=== PATIENT | female | born 1960 | race Caucasian/White ===

== ENCOUNTER 2016-12-25 21:46 | Emergency (ER) | payer MEDICARE, MEDICAID ==
--- NOTE | 2017-01-04 13:53 | ER ---
ADMIT: 12/25/2016 RM/LOC: [facility] MR#: [id number] [address] [address] [place] [address] Emergency Room Report SEX: F AGE: 56 : 1960 DATE: 12/25/2016 ADDENDUM: A 56-year-old female, who lives at a skilled nursing as she needs assistance due to her traumatic brain injury many years ago, comes in for an injury to her right small finger. Apparently, she was trying to transfer from her wheelchair to a commode when she lost her balance, fell, and somehow crushed her distal phalanx of her right small finger. On evaluation, she has had a complicated injury involving her nail bed and has essentially lost her nail already on her right small finger. There is no injury proximal to the distal phalanx. An x-ray does confirm a tuft fracture to the distal phalanx. The wound was thoroughly cleaned with Betadine and irrigated. I removed the nail, which was barely attached and did my best to reapproximate what was left of the nail bed. Seven sutures were used to approximate the wound and she had bupivacaine for anesthesia. As it is a technically open fracture, she got Rocephin here. She will be discharged home on Keflex, and she is to follow up in Dr. Garcia' office later this week. She is given a nonadherent dressing with a finger basket splint for protection. DIAGNOSES: 1. Crush injury to the right distal phalanx 5th digit. 2. Laceration of the nail bed of right distal phalanx 5th digit. Hadley Noel MD/ [place] JOB #: [id number] CC: Hadley Noel MD, Attending Physician UNKNOWN, Family Physician
== END 2016-12-25 23:45 | disposition home or self-care (01) ==
LOC: ER 21:46
PROC: 0HQQXZZ Repair Finger Nail, External Approach (ICD-10-PCS; principal; 2016-12-25)
DX: S62.636B Displaced fracture of distal phalanx of right little finger, initial encounter for open fracture (principal); S61.316A Laceration without foreign body of right little finger with damage to nail, initial encounter; Z88.0 Allergy status to penicillin; Z88.6 Allergy status to analgesic agent; Z79.899 Other long term (current) drug therapy; W20.8XXA Other cause of strike by thrown, projected or falling object, initial encounter; Y92.009 Unspecified place in unspecified non-institutional (private) residence as the place of occurrence of the external cause

== ENCOUNTER → 2016-12-31 | Outpatient (CLI) | payer MEDICARE, MEDICAID | END | disposition home or self-care (01) | LOC: RAD.S 08:30 | PROC: BP09YZZ Plain Radiography of Left Shoulder using Other Contrast (ICD-10-PCS; principal; 2016-12-31) | DX: M25.512 Pain in left shoulder (principal) ==

== ENCOUNTER → 2017-01-27 | Outpatient (CLI) | payer MEDICARE, MEDICAID | END | disposition home or self-care (01) | LOC: RAD.S 10:45 | DX: Z01.818 Encounter for other preprocedural examination (principal) ==

== ENCOUNTER 2017-01-31 10:10 | Day surgery (SDC) | payer MEDICARE, MEDICAID ==
[~2017-01-31] VITALS: Ht 175.3 cm; Wt 108.2 kg
--- NOTE | 2017-01-31 14:36 | HP ---
ADMIT: 01/31/2017 RM/LOC: [facility] MR#: [id number] [address] [address] Pre-OP History and Physical SEX: F AGE: 56 : 1960 DATE OF SERVICE: 01/31/2017 CHIEF COMPLAINT: Left shoulder pain. HISTORY: This 56-year-old lady has undergone rotator cuff surgery in the past. She has had ongoing pain for quite some time, which we treated conservatively. Her prior rotator cuff repair was in 2007. She does have a known history of cervical radiculopathy. Recent scan demonstrated recurrent tear of the rotator cuff. PAST MEDICAL HISTORY: Medical problems including anxiety, endometrial cancer, depression, GERD, rheumatoid arthritis, headaches with migraines, and hearing impairment. PRIOR SURGERIES: Include arthroscopy of the ankle, arthroscopic repair of rotator cuff in 2001, and a hysterectomy. MEDICATIONS: 1. VESIcare. 2. Antivert. 3. Gabapentin. 4. Lasix. 5. Terazosin. 6. Lomotil. 7. Nabumetone. 8. Nystatin ointment. 9. Premarin. 10.Prilosec. 11.Zofran. 12.Zyrtec. ALLERGIES: SHE IS ALLERGIC TO ASPIRIN AND PENICILLIN. FAMILY HISTORY: Positive for endometrial cancer. SOCIAL HISTORY: The patient is a former smoker. PHYSICAL EXAMINATION: This patient has limited range of motion of the left shoulder secondary to pain. She has weakness in both abduction and external ADMIT: 01/31/2017 RM/LOC: [facility] MR#: [id number] [address] [id number] [place] [address] Pre-OP History and Physical SEX: F AGE: 56 : 1960 rotation. Radiographs do show prior evidence for rotator cuff repair. She has had an acromioplasty, but it appears her acromioclavicular joint is intact. IMAGING STUDIES: Show that on december 31, 2016, she had an MR arthrogram which showed a tear of the supraspinatus tendon. IMPRESSION: Recurrent tear, left rotator cuff. RECOMMENDATIONS: Left shoulder arthroscopy, possible rotator cuff repair. Risks, benefits, alternatives, as well as potential complications were discussed. Jessica Ortiz MD/ [place] JOB #: [id number] CC: Jessica Ortiz, Attending Physician Keya Rahman, Family Physician
--- NOTE | 2017-02-14 11:22 | OR ---
ADMIT: 01/31/2017 RM/LOC: [facility] MR#: [id number] ACC#: [id number] [address] [address] [place] [address] Operative/Delivery Room Report SEX: F AGE: 56 : 1960 Corrected: 02/08/2017 1226 djs SURGERY DATE: 01/31/2017 SURGEON: Jessica Ortiz MD PREOPERATIVE DIAGNOSIS: Recurrent left rotator cuff tear. POSTOPERATIVE DIAGNOSES: 1. Recurrent left rotator cuff tear. 2. Attritional biceps tendinitis. 3. Degenerative superior labral tear. 4. Residual subacromial impingement. 5. Grade 2 glenohumeral chondromalacia. PROCEDURES: 1. Left shoulder arthroscopy with biceps tenotomy. 2. Extensive intra-articular debridement including superior labrum and biceps tendon. 3. Revision subacromial decompression. 4. Mini open rotator cuff repair. ASSISTANTS: 1. OPHELIA Garcia. 2. Gerhard Charles PA-C. ANESTHESIA: General. ESTIMATED BLOOD LOSS: 25 mL. DESCRIPTION OF PROCEDURE: This patient was brought to the operating room. After satisfactory level of anesthesia was achieved, the patient was placed in a modified palencia chair position. All bony problems were well padded and the patient was first seated in a modified palencia chair position. Head was supported in head rest with cervical spine in a neutral position. The left shoulder was then circumferentially prepped and draped in the usual sterile fashion. After sterile prep and drape of the extremity, the scope was then reduced into a posterior portal. Intra-articular pathology showed a recurrent rotator cuff tear, attritional biceps tendinitis with a large degenerative superior labral tear. There was diffuse grade 2 chondromalacia on the glenoid surface, very mild degenerative change on the humeral head. Through the anterior portal, obtained outside/in technique, an extensive debridement was performed including the superior labrum, biceps tenotomy. Then, the scope repositioned in the subacromial bursa where after excising a thickened bursa, a revision subacromial decompression was performed. A lateral portal extension incision was then performed. There was an L-shaped recurrent tear of the rotator cuff. I was able to first close the split in the supraspinatus tendon, ADMIT: 01/31/2017 RM/LOC: [facility] MR#: [id number] [address] [address] [facility] [place] [address] Operative/Delivery Room Report SEX: F AGE: 56 : 1960 then placing multiple #2 Orthocord sutures in the edge of the rotator cuff. I then brought these out through bone tunnels and when tied, I had a very secure repair of the rotator cuff. I used a bur to lightly decorticate the tuberosity and I removed the prior sutures from prior repair that she had in 2007. Once the cuff was repaired and the wound was irrigated, the deltoid fascia closed [id number] #1 Vicryl, subcutaneous tissue with 2-0 Vicryl, and skin with russ. The shoulder was injected with 30 mL of 0.5% Marcaine with epinephrine. A sterile dressing was applied. She was placed in an abduction brace. At this point, she was transferred from the operative suite in stable condition. Jessica Ortiz MD/ [place] JOB #: [id number] CC: Jessica Ortiz, Attending Physician Keya Rahman, Family Physician Corrected: 02/08/2017 1226 kathi
== END 2017-01-31 17:37 | disposition home or self-care (01) ==
LOC: SSS 10:10
DX: M75.102 Unspecified rotator cuff tear or rupture of left shoulder, not specified as traumatic (principal); M94.212 Chondromalacia, left shoulder; M75.22 Bicipital tendinitis, left shoulder; M25.812 Other specified joint disorders, left shoulder; F31.9 Bipolar disorder, unspecified; Z88.0 Allergy status to penicillin; E03.9 Hypothyroidism, unspecified; Z79.899 Other long term (current) drug therapy; Z88.8 Allergy status to other drugs, medicaments and biological substances; Z87.891 Personal history of nicotine dependence